=== PATIENT | female | born 1975 | race Caucasian/White ===

== ENCOUNTER → 2023-12-11 14:48 | Outpatient (REF) | payer BC, SELFPAY | LOC: WDC 14:48 | PROVIDERS: ATTENDING PHYSICIAN Emergency Medicine | DX: R92.2 Inconclusive mammogram (principal) | CPT/HCPCS: 76641 ==

== ENCOUNTER → 2024-05-16 08:55 | Outpatient (REF) | payer BC, SELFPAY | LOC: WDC 08:55 | PROVIDERS: ATTENDING PHYSICIAN Obstetrics & Gynecology Gynecology; FAMILY PHYSICIAN Emergency Medicine | DX: Z12.31 Encounter for screening mammogram for malignant neoplasm of breast (principal) | CPT/HCPCS: 77063; 77067 ==

== ENCOUNTER → 2024-12-10 09:00 | Outpatient (REF) | payer BC, SELFPAY | LOC: WDC 09:00 | PROVIDERS: ATTENDING PHYSICIAN Obstetrics & Gynecology Gynecology; FAMILY PHYSICIAN Emergency Medicine | DX: R92.2 Inconclusive mammogram (principal) | CPT/HCPCS: 76641 ==

== ENCOUNTER 2025-02-07 22:27 | Inpatient (IN) | payer BC, SELFPAY ==
[2025-02-07 14:32] VITALS: BP 118/74
--- NOTE | 2025-02-07 17:00 | ED.GENMED ---
History of Present Illness
<RL Hood - Last Filed: 02/10/25 20:31>
General
Chief Complaint: Anal/Rectal Problem
Source: patient
Exam Limitations: none
Time Seen by Provider: 02/07/25 16:27
Nursing documentation reviewed up to this point in time: agreed with
History of Present Illness
History of Present Illness:
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 She reports she has had chronic irritation to the rectal area which has
really not been diagnosed. She has been on antifungal and steroid creams however on Monday 2 days ago she has had increasing swelling and a lump just above the rectal area. She reports this has caused her increased pain she saw her family
doctor yesterday who recommended sitz bath today.
Today she reports she went to urgent care yesterday and was started on antibiotics. She took 2 Bactrim yesterday 1 dose today. Patient was seen by urgent care today and area started to drain and rupture patient was sent to the ER for evaluation.
Review of Systems
<RL Hood - Last Filed: 02/10/25 20:31>
Review of Systems
Allergies reviewed?: Yes
All Other Systems: ROS reviewed and negative except as documented in HPI and ROS
Constitutional: Reports chills
EENT: Reports no symptoms
Respiratory: Reports no symptoms
Cardiac: Reports no symptoms
ABD/GI: Reports other (lump above rectum + pain now draining ); Denies abdominal pain, nausea, vomiting or diarrhea
: Reports no symptoms
Musculoskeletal: Reports no symptoms
Skin: Reports no symptoms
Psychiatric: Reports no symptoms
Phy Exam
<RL Hood - Last Filed: 02/10/25 20:31>
General Physical Exam
General Presentation: no apparent distress
General age: appears stated age
General Skin: warm and dry
General Habitus: normal
General Mental: alert
General Hydration: appears well hydrated
Gastrointestinal Exam
Gastrointestinal Exam: soft and other (+ open actively draining (purulent ) abscess 12 o clock rectum + tender )
Neurological Exam
Neurological Exam: alert
Musculoskeletal Exam
Musculoskeletal Exam: full ROM
Skin Exam
Skin Exam: normal color and warm/dry
Psychiatric Exam
Psychiatric Exam: normal mood/affect
Course
<RL Hood - Last Filed: 02/10/25 20:31>
Orders/Labs/Results
Orders:
Orders
02/07/25 17:05
IV Insert/Care/Rem.- Treatment PRN
0.9% Sodium Chloride 1000 ml [Nss] 1,000 ml IV BOLUS
Ketorolac [Toradol] 15 mg IV NOW STA
02/07/25 17:07
CT Abd/Pel (IV only)-[facility] only Urgent
Comment:
Reason For Exam: irma -rectal abscess
Test Result ONCE
02/07/25 17:08
Complete Blood Count/With Diff Urgent
Comprehensive Metabolic Panel Urgent
HCG, Serum Qualitative Screen Urgent
02/07/25 17:15
Wound Culture [Wound/Abscess/Other Culture] Urgent
LUCINA Source: Abscess
Specimen Description:
Date Specimen was Collected: 02/07/25
Time Specimen was Collected: 17:14
Comment: irma rectal
02/07/25 21:42
Piperacillin/Tazo 3.375 Gram [Zosyn] 3.375 gram in 50 ml IV NOW
02/07/25 22:12
Admit/Transfer Patient As Directed
Co-Sign Provider:
Level of Care: Inpatient admission
Assign to:: Medical/Surgical
Physician / Group: Ghanshyam
Diagnosis: Rectal Abscess
Reason for Hospitalization: IV abx
Expected length of stay greater than two midnights?: Yes
ELOS- Estimated Length of Stay in days: 3
I certify the patient meets the requirements for IP care: Yes
02/07/25 22:13
PRN Pain Medication Management As Directed
May give lesser potent ordered pain med per pt: Yes
preference::
Protocol:: Medication orders for pain may be administered in a
manner that supports deferring to patient preference
when the pt is:
- Requesting an ordered lesser potent pain medication.
Least to most potent pain medications are defined
as: acetaminophen < NSAID < tramadol < opioids
(morphine, oxycodone, hydromorphone).
- Requesting a lesser dose of the same medication IF
ORDERED.
- Requesting a less intrusive route of administration
if both routes are prescribed by the provider (PO <
IV).
02/07/25 22:14
Code Status As Directed
Resuscitation Status: Full Code
02/08/25 00:22
Acetaminophen [Tylenol] 650 mg PO Q6HPRN PRN
HYDROmorphone [Dilaudid] 0.25 mg IV Q3HPRN PRN
Ketorolac [Toradol] 15 mg IV Q8HPRN PRN
Ondansetron Injectable [Zofran] 4 mg IV Q6HPRN PRN
02/08/25 00:22
SURGICAL CONSULT Routine
Consulting Provider: Bharath Puckett
Was physician already notified: Yes
Activity As Directed
Activity Level: Out of Bed-Early Mobility
With Assistance
Vital Signs As Directed
Frequency: Per unit guidelines
DX Deep Vein Thrombosis Video Routine
02/08/25 04:00
Piperacillin/Tazo 3.375 Gram [Zosyn] 3.375 gram in 50 ml IV Q6H
02/08/25 Breakfast
NPO
Allow oral meds: Yes
Allow clear liquids: 4hrs prior to procedure
Comment: may have unrestricted clear liquid up to 4 hrs prior to scheduled procedure
02/08/25 07:13
Complete Blood Count/No Diff IN AM
Comprehensive Metabolic Panel IN AM
02/08/25 08:00
Buspirone [Buspar] 5 mg PO TID
Hydroxychloroquine [Plaquenil] 200 mg PO DAILY
02/08/25 18:00
Enoxaparin Sodium [Lovenox] 40 mg SC QPM
02/08/25 22:00
Trazodone [Desyrel] 50 mg PO HS
Abnormal Lab Results
02/07/25
17:08
WBC 14.7 H 10^3/uL
(4.8-10.8)
RBC 3.54 L 10^6/uL
(4.20-5.40)
Hgb 11.0 L g/dL
(12.0-16.0)
Hct 32.2 L %
(37.0-47.0)
MCH 31.1 H pg
(27.0-31.0)
Absolute Neuts (auto) 11.5 H 10^3/uL
(1.4-6.5)
Absolute Monos (auto) 1.0 H 10^3/uL
(0.1-0.6)
Neutrophils % 78.7 H %
(42.2-75.2)
Lymphocytes % 13.1 L %
(20.5-51.1)
Chloride 108 H mmol/L
(98-107)
AST 178 H U/L
(14-36)
ALT 291 H U/L
(0-35)
Alkaline Phosphatase 240 H U/L
(38-126)
02/07/25 17:08
02/07/25 17:08
Vital Signs
Initial and Last Documented VS:
Initial Vital Signs
Temp Pulse Resp BP Pulse Ox
98.5 F 78 18 118/74 98
02/07/25 14:32 02/07/25 14:32 02/07/25 14:32 02/07/25 14:32 02/07/25 14:32
Last Documented Vital Signs
Temp Pulse Resp BP Pulse Ox
98.2 F 71 16 101/59 96
02/08/25 15:09 02/08/25 15:09 02/08/25 15:09 02/08/25 15:09 02/08/25 15:09
<Nay Shelby NP - Last Filed: 02/09/25 19:38>
Orders/Labs/Results
Orders:
Orders
02/07/25 17:05
IV Insert/Care/Rem.- Treatment PRN
0.9% Sodium Chloride 1000 ml [Nss] 1,000 ml IV BOLUS
Ketorolac [Toradol] 15 mg IV NOW STA
02/07/25 17:07
CT Abd/Pel (IV only)-[facility] only Urgent
Comment:
Reason For Exam: irma -rectal abscess
Test Result ONCE
02/07/25 17:08
Complete Blood Count/With Diff Urgent
Comprehensive Metabolic Panel Urgent
HCG, Serum Qualitative Screen Urgent
02/07/25 17:15
Wound Culture [Wound/Abscess/Other Culture] Urgent
LUCINA Source: Abscess
Specimen Description:
Date Specimen was Collected: 02/07/25
Time Specimen was Collected: 17:14
Comment: irma rectal
02/07/25 21:42
Piperacillin/Tazo 3.375 Gram [Zosyn] 3.375 gram in 50 ml IV NOW
02/07/25 22:12
Admit/Transfer Patient As Directed
Co-Sign Provider:
Level of Care: Inpatient admission
Assign to:: Medical/Surgical
Physician / Group: Ghanshyam
Diagnosis: Rectal Abscess
Reason for Hospitalization: IV abx
Expected length of stay greater than two midnights?: Yes
ELOS- Estimated Length of Stay in days: 3
I certify the patient meets the requirements for IP care: Yes
02/07/25 22:13
PRN Pain Medication Management As Directed
May give lesser potent ordered pain med per pt: Yes
preference::
Protocol:: Medication orders for pain may be administered in a
manner that supports deferring to patient preference
when the pt is:
- Requesting an ordered lesser potent pain medication.
Least to most potent pain medications are defined
as: acetaminophen < NSAID < tramadol < opioids
(morphine, oxycodone, hydromorphone).
- Requesting a lesser dose of the same medication IF
ORDERED.
- Requesting a less intrusive route of administration
if both routes are prescribed by the provider (PO <
IV).
02/07/25 22:14
Code Status As Directed
Resuscitation Status: Full Code
02/08/25 00:22
Acetaminophen [Tylenol] 650 mg PO Q6HPRN PRN
HYDROmorphone [Dilaudid] 0.25 mg IV Q3HPRN PRN
Ketorolac [Toradol] 15 mg IV Q8HPRN PRN
Ondansetron Injectable [Zofran] 4 mg IV Q6HPRN PRN
02/08/25 00:22
SURGICAL CONSULT Routine
Consulting Provider: Bharath Puckett
Was physician already notified: Yes
Activity As Directed
Activity Level: Out of Bed-Early Mobility
With Assistance
Vital Signs As Directed
Frequency: Per unit guidelines
DX Deep Vein Thrombosis Video Routine
02/08/25 04:00
Piperacillin/Tazo 3.375 Gram [Zosyn] 3.375 gram in 50 ml IV Q6H
02/08/25 Breakfast
NPO
Allow oral meds: Yes
Allow clear liquids: 4hrs prior to procedure
Comment: may have unrestricted clear liquid up to 4 hrs prior to scheduled procedure
02/08/25 07:13
Complete Blood Count/No Diff IN AM
Comprehensive Metabolic Panel IN AM
02/08/25 08:00
Buspirone [Buspar] 5 mg PO TID
Hydroxychloroquine [Plaquenil] 200 mg PO DAILY
02/08/25 18:00
Enoxaparin Sodium [Lovenox] 40 mg SC QPM
02/08/25 22:00
Trazodone [Desyrel] 50 mg PO HS
Abnormal Lab Results
02/07/25
17:08
WBC 14.7 H 10^3/uL
(4.8-10.8)
RBC 3.54 L 10^6/uL
(4.20-5.40)
Hgb 11.0 L g/dL
(12.0-16.0)
Hct 32.2 L %
(37.0-47.0)
MCH 31.1 H pg
(27.0-31.0)
Absolute Neuts (auto) 11.5 H 10^3/uL
(1.4-6.5)
Absolute Monos (auto) 1.0 H 10^3/uL
(0.1-0.6)
Neutrophils % 78.7 H %
(42.2-75.2)
Lymphocytes % 13.1 L %
(20.5-51.1)
Chloride 108 H mmol/L
(98-107)
AST 178 H U/L
(14-36)
ALT 291 H U/L
(0-35)
Alkaline Phosphatase 240 H U/L
(38-126)
02/07/25 17:08
02/07/25 17:08
Vital Signs
Initial and Last Documented VS:
Initial Vital Signs
Temp Pulse Resp BP Pulse Ox
98.5 F 78 18 118/74 98
02/07/25 14:32 02/07/25 14:32 02/07/25 14:32 02/07/25 14:32 02/07/25 14:32
Last Documented Vital Signs
Temp Pulse Resp BP Pulse Ox
98.2 F 71 16 101/59 96
02/08/25 15:09 02/08/25 15:09 02/08/25 15:09 02/08/25 15:09 02/08/25 15:09
<RL Hood - Last Filed: 02/10/25 20:31>
MDM/Problems Addressed
Differential Diagnosis Includes:
not limited to : irma -rectal abscess
MDM/Problems Addressed:
As documented patient with abscess approximate 12:00 of the rectum that is now draining. She does have a history of undifferentiated connective tissue disorder and is on Plaquenil. She denies any chills white count minimally elevated at 14,000 she
is on Bactrim and has had 3 doses. Culture sent CAT scan ordered. In addition patient was noted to have elevated LFTs. She has no complaints abdominal pain and is unaware that her LFTs were elevated in the past.
1829: CAT scan pending at this time care of patient transferred to Trung Shelby NP colorectal surgery made aware..
<RL Hood - Last Filed: 02/10/25 20:31>
*Radiology
Radiology exam reviewed: radiology read reviewed
*Pulse Oximetry
Patient hypoxic: no
<Nay Shelby NP - Last Filed: 02/09/25 19:38>
*Critical Care Note
Total Time (30-74mins, 75-104mins- exclusive of procedures): Not Applicable
<Nay Shelby NP - Last Filed: 02/09/25 19:38>
Update Note
Update Note:
CT result reviewed. Dr. Mcdaniel notified of findings. Patient will be admitted to hospitalists service. NPO after MN, for surgery tomorrow. Discussed CT results and plan with patient and spouse, questions answered, they are agreeable to plan.
ED Attending Note
<RL Hood - Last Filed: 02/10/25 20:31>
-
Portions of this chart may have been created with voice recognition software.� Occasional wrong word or��sound alike� substitutions may have occurred due to the inherent limitations of voice recognition software.
Discharge Plan
Departure
Patient Disposition: Admit
Date of Disposition: 02/07/25
Time of Disposition: 21:44
Presentation/result/management discussed w/ accepting MD/DO: Hospitalist
Patient with high blood pressure during this ER visit?: No
Condition: Fair
Covid-19: Not Applicable
Discharge Problem:
Abscess of anal or rectal region
Interventions
Interventions:
*Risk Screen - Suicide Last Done: 02/07/25 14:32
*General Assessment Last Done: 02/07/25 14:32
*Neglect/Abuse Screening Last Done: 02/07/25 23:00
*ED- Fall Risk Assessment Last Done: 02/07/25 22:01
*ED COVID-19 Vaccine History Last Done: 02/07/25 22:01
*Nursing Disposition Last Done: 02/08/25 00:15
ED-Skin Assessment Last Done: 02/07/25 20:44
Discharge Date and Time
Discharge Date/Time: 02/08/25 00:15
[2025-02-07] MEDS: TORADOL 15 MG IV (17:10)
[2025-02-07] MEDS: NSS 1000 IV (17:11)
[2025-02-07 17:29] LABS: % Basophils 0.5 % (0-2); % Eosinophils 0.5 % (0-6); % Immature Granulocytes 0.3 % (0-0.5); % Lymphocytes 13.1 % (20.5-51.1); % Monocytes 6.9 % (1.7-9.3); % Neutrophils 78.7 % (42.2-75.2); Absolute Basophils 0.1 10^3/uL (0-0.2); Absolute Eosinophils 0.1 10^3/uL (0-0.7); Absolute Lymphocytes 1.9 10^3/uL (1.2-3.4); Absolute Neutrophils 11.5 10^3/uL (1.4-6.5); Hematocrit 32.2 % (37.0-47.0); Mean Corp Hgb Conc. 34.2 g/dL (33.0-37.0); Mean Corpuscular Hgb 31.1 pg (27.0-31.0); Mean Platelet Volume 10.1 fL (7.4-10.4); Nucleated Red Blood Cells % 0 %; Platelet Count 328 10^3/uL (130-400); Red Blood Cell Count 3.54 10^6/uL (4.20-5.40); White Blood Cell Count 14.7 10^3/uL (4.8-10.8)
[2025-02-07 17:35] LABS: HCG, Serum Qualitative Screen Negative
[2025-02-07 17:39] LABS: ALT (SGPT) 291 U/L (0-35); AST (SGOT) 178 U/L (14-36); Albumin 3.9 g/dl (3.5-5.0); Alkaline Phosphatase 240 U/L (38-126); Blood Urea Nitrogen 11 mg/dl (7-17); Carbon Dioxide 24 mmol/L (22-30); Chloride 108 mmol/L (98-107); Glucose 97 mg/dl (70-99); Potassium 4.2 mmol/L (3.5-5.1); Sodium 139 mmol/L (135-145); Total Bilirubin 0.6 mg/dl (0.2-1.3); Total Protein 6.8 g/dl (6.3-8.2); eGFR > 60.00
[2025-02-07 20:57] VITALS: BP 114/66
[2025-02-07] MEDS: ZOSYN 50 IV (21:52)
--- NOTE | 2025-02-07 22:18 | HPS.HSE ---
Addendum entered and electronically signed by Misha Morrissey DO 02/07/25 23:22:
Patient seen and examined independently. Agree with findings and plan as set forth by Nicky Moody PA-C.
Patient is a 49y F with PMH significant for unspecified connective tissue disorder who presents to ED complaining of rectal itching and pain. Patient reports itching x several weeks. Symptoms gradually progressed to include pain in the rectal
area - worse with sitting / squatting. Patient herself appreciated a lump in the rectal area. Yesterday she was seen by her PCP, started on Bactrim and recommended soaks. Patient presented to the ED today with worsening discomfort.
CT done in the ED shows inflammation in the distal rectum with small abscess / collection.
Ass:
Perirectal Abscess
Unspecified Connective Tissue Disease
Anxiety / Insomnia
Plan:
Admit for further evaluation and treatment.
IV Zosyn for now.
Supportive care / pain control.
Colorectal Surgery evaluation - ? I&D of area.
Follow for clinical improvement.
Continue usual home medications.
Original Note:
Family Physician
-
Family Physician: Leonela Nam MD
Chief Complaint
-
Rectal Pain/Itching
History of Present Illness
Patient is a 49 y/o female past medical history of anxiety/insomnia and unspecified connective tissue disorder who presents with rectal pain/itching. Patient notes anal itching for several weeks. She developed an increased swelling with a palpable
lump just above the rectal area. Yesterday she started on Bactrim by her primary care provider who also recommended sitz baths. She was seen at urgent care today due persistent symptoms who sent her to the emergency department for evaluation for a
draining perirectal abscess. Patient reports temperature ~99F but no sweats or chills.
Medical History
Past Medical History
Past Medical History: Reports Other
Additional Past Medical History:
Anxiety / Insomnia
Unspecified Connective Tissue Disorder
Past Surgical History: Reports Other
Additional Past Surgical History:
Colon polypectomy
Cervical polypectomy
Social History
Tobacco: Non-smoker
Alcohol: Other (One beer nightly)
Family History
Family History: Not pertinent
Allergies / Home Medications
Allergies reflects when Allergies were last updated in [facility].
Home Medications with original date entered in [facility]
Allergy/Medication List:
Allergies
Allergy/AdvReac Type Severity Reaction Status Date / Time
No Known Allergies Allergy Unverified 02/07/25 14:38
Home Medications
acetaminophen 325 mg tablet (Tylenol) 650 mg PO Q6HPRN PRN mild pain 02/07/25
buspirone 5 mg tablet 5 mg PO TID 02/07/25
estradiol-norethindrone acet 1 mg-0.5 mg tablet (Mimvey) 1 tab PO DAILY 02/07/25
hydroxychloroquine 200 mg tablet (Plaquenil) 200 mg PO DAILY 02/07/25
sulfamethoxazole 800 mg-trimethoprim 160 mg tablet (Bactrim DS) 1 tab PO BID 02/07/25
therapeutic multivitamin 1 tab PO DAILY 02/07/25
trazodone 50 mg tablet 50 mg PO HS 02/07/25
Review of Systems
-
A 12 point ROS was completed and negative except as noted: Yes
Constitutional: Denies Fever
Respiratory: Denies Cough or Trouble Breathing
Cardiac: Denies Chest Pain or Palpitations
Abdomen/GI: Denies Abdominal Pain, Nausea, Vomiting, Diarrhea or Constipated
Physical Exam
Vital Signs
Vital Signs
Temp Pulse Resp BP Pulse Ox
98.5 F 82 18 114/66 96
02/07/25 14:32 02/07/25 20:57 02/07/25 20:57 02/07/25 20:57 02/07/25 20:57
Physical Exam
General: Comfortable and Conversant
HEENT: Anicteric and Moist mucous membranes
Respiratory: Clear and Non Labored Respirations
Cardiac: S1/S2 and Regular Rhythm
GI: Soft, Non Tender and Other
Rectal: Other (Draining abscess noted by ED provider)
Musculoskeletal: No Clubbing, No Cyanosis and No Edema
Skin: Warm and Dry
Neuro: Awake, Alert, Oriented and Nonfocal/grossly intact
Psych: Calm
Laboratory Results
-
02/07/25 17:08
02/07/25 17:08
Laboratory Results
Total Bilirubin 0.6 mg/dl (0.2-1.3) 02/07/25 17:08
AST 178 U/L (14-36) H 02/07/25 17:08
ALT 291 U/L (0-35) H 02/07/25 17:08
Alkaline Phosphatase 240 U/L (38-126) H 02/07/25 17:08
Data Reviewed
-
CT Scan: Report Reviewed by me
Lab Data: Labs Reviewed by me
Impression/Plan
-
Liseth-Rectal Abscess
-Consult Surgery
-Plan for I&D in OR tomorrow
-Continue Zosyn
-Await culture result
Anxiety / Insomnia
-Continue buspirone and trazodone
Unspecified Connective Tissue Disorder
-Continue hydroxychloroquine
DVT proph: Lovenox
Code Status: Full Code
[2025-02-07 23:46] VITALS: BP 110/62
[2025-02-08] VITALS (12 sets, daily range): BP systolic 91–119; BP diastolic 46–71; BMI 21.3
[2025-02-08] MEDS: TORADOL 15 MG IV (01:17)
--- NOTE | 2025-02-08 02:02 | PTCARENOTE ---
Receive pt from ER. Pt alert oriented X3 calm and pleasant, in no distress. Pt reports pain in the perirectal area of 5/10. The pain has a burning sensation. Pt oriented to the room, call blank within reach. VSS (T=98.3, HR=69, RR=18, SV=667/71,
SpO2=97% on RA). Perirectal area cleaned with saline and a dry gauze 4x4. Toradol 15mg given for pain. Will continue to monitor the pt.
[2025-02-08] MEDS: ZOSYN 50 IV ×2 (04:05→11:33)
[2025-02-08 08:20] LABS: Mean Corp Hgb Conc. 33.3 g/dL (33.0-37.0); Mean Corpuscular Hgb 30.3 pg (27.0-31.0); Mean Corpuscular Volume 90.9 fL (81.0-99.0); Mean Platelet Volume 10.3 fL (7.4-10.4); Platelet Count 306 10^3/uL (130-400); Red Cell Dist. Width 13.8 % (11.5-14.5); White Blood Cell Count 11.6 10^3/uL (4.8-10.8)
[2025-02-08] MEDS: BUSPAR 5 MG PO (08:25)
[2025-02-08 08:57] LABS: ALT (SGPT) 206 U/L (0-35); AST (SGOT) 82 U/L (14-36); Albumin 3.4 g/dl (3.5-5.0); Alkaline Phosphatase 223 U/L (38-126); Blood Urea Nitrogen 16 mg/dl (7-17); Calcium 8.9 mg/dl (8.4-10.2); Carbon Dioxide 23 mmol/L (22-30); Chloride 109 mmol/L (98-107); Estimated Creatinine Clearance 78 ml/min; Glucose 62 mg/dl (70-99); Potassium 4.1 mmol/L (3.5-5.1); Sodium 139 mmol/L (135-145); Total Bilirubin 0.7 mg/dl (0.2-1.3); Total Protein 6.2 g/dl (6.3-8.2); eGFR > 60.00
--- NOTE | 2025-02-08 09:42 | CON.GS ---
Medical History
-
Chief Complaint: Liseth-anal pain
History of Present Illness:
Patient is a 49 yo F with a PMH of depression/anxiety and unknown collagen vascular disorder (on Hydroxychloroquine) who presents with acute on chronic perianal pain and drainage. Ms. Reis states that over the past several months she has had issues
with perianal discomfort and itching. She denies any significant pain or clear drainage. She has had outpatient workup and management by her PCP with largely topical therapies including steroids. She states that on Monday she developed
worsening pain prompting repeat evaluation at her PCPs office who referred her to an urgent care. At the urgent care she was found to have drainage and concern for an abscess prompting referral to the ED. No fevers or chills. No weight loss or
night sweats. No significant chronic GI issues including constipation, diarrhea, or bloody bowel movements. No issues with incontinence. Last colonoscopy was in 2022 and notable for a 3 mm polyp in the rectum; biopsy fragment of colonic mucosa
with focal adenomatous changes. Since spontaneous drainage she states that her symptoms (largely pain) have improved.
Of note, she has an upcoming appointment with colorectal surgery on 02/12/2025. She has not previously seen a colorectal surgeon for these issues.
Past Medical History
Past Medical History: Psychiatric (Depression/anxiety) and Other (Unknown collagen vascular disorder)
Past Surgical History: None
Social History
Tobacco: Non-Smoker
Alcohol: Occasional
Drug: None
Personal:
Living: With Family
Family History
Family History: Reviewed & Noncontributory
Allergies / Home Medications
Allergy/AdvReac Type Severity Reaction Status Date / Time
No Known Allergies Allergy Unverified 02/07/25 14:38
�Medication �Instructions �Recorded �Confirmed �Type
acetaminophen 325 mg tablet 650 mg PO Q6HPRN PRN mild pain 02/07/25 02/07/25 History
(Tylenol)
buspirone 5 mg tablet 5 mg PO TID Mental Health/Anxiety 02/07/25 02/07/25 History
estradiol-norethindrone acet 1 1 tab PO DAILY Hormonal Agent 02/07/25 02/07/25 History
mg-0.5 mg tablet (Mimvey)
hydroxychloroquine 200 mg tablet 200 mg PO DAILY Autoimmune Disorder 02/07/25 02/07/25 History
(Plaquenil)
sulfamethoxazole 800 1 tab PO BID Infection 02/07/25 02/07/25 History
mg-trimethoprim 160 mg tablet
(Bactrim DS)
therapeutic multivitamin 1 tab PO DAILY Supplement 02/07/25 02/07/25 History
trazodone 50 mg tablet 50 mg PO HS Sleep 02/07/25 02/07/25 History
Review of Systems
-
A 10 point review of systems was completed, and was negative except as per HPI.
Physical Exam
Vital Signs
Temp Pulse Resp BP Pulse Ox
98.1 F 71 16 119/63 98
02/08/25 07:22 02/08/25 07:22 02/08/25 07:22 02/08/25 07:22 02/08/25 07:22
02/07/25 02/08/25 02/09/25
06:59 06:59 06:59
Actual Weight 59.903 kg
Body Mass Index (BMI) 21.3
Lab Results
02/08/25 07:13
02/08/25 07:13
WBC 11.6 10^3/uL (4.8-10.8) H 02/08/25 07:13
Hgb 10.0 g/dL (12.0-16.0) L 02/08/25 07:13
Hct 30.0 % (37.0-47.0) L 02/08/25 07:13
Plt Count 306 10^3/uL (130-400) 02/08/25 07:13
Abs Immat Gran (auto) 0.0 10^3/uL (0-0.05) 05/16/25 17:08
Neutrophils % 78.7 % (42.2-75.2) H 02/07/25 17:08
Physical Exam
General: Well Developed, Well Nourished and No Apparent Distress
Respiratory: Non Labored Respirations
Cardiac: Regular Rhythm
GI: Soft, Non Tender and Non Distended
Rectal: Other (Posterior midline with 0.5 cm opening, mild drainage of serous fluid, no significant surrounding erythema or induration, no palpable fluid collection, mild/moderate discomfort with exam)
Musculoskeletal: No Edema
Skin: Warm and Dry
Neuro: Nonfocal/Grossly Intact
Data Reviewed
-
CT Scan: Image Personally Visualized and interpreted and Report Reviewed by me
Labs: Labs Reviewed by me
Assessment / Plan
-
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
Time course and prodromal symptoms are somewhat unusual extending longer than what would typically be expected for an acute issue such as a perirectal abscess. The natural history and pathophysiology of perirectal abscesses was discussed. Options
for management at this time were reviewed. Given her persistent issues and concern for possible fistulous connection, recommend exam under anesthesia, drainage of a perirectal abscess, and possible seton placement. The procedure itself, as well as
the risks, benefits, and alternatives was discussed. Specifically, we discussed the risks of bleeding, infection, injury to surrounding structures, incontinence issues, and need for further procedures. Typical postprocedural recovery was
discussed. Expect that she will continue with follow-up with the Colorectal surgeons this coming week regardless of findings and procedural intervention performed. Ms. Reis agrees to proceed. All questions answered. Consent signed.
-- EUA, drainage of perirectal abscess, possible seton placement
-- NPO, IVF
-- Abx: Zosyn
--- NOTE | 2025-02-08 09:55 | W.SUR.PREOP ---
Pre-Operative Surgical Note
-
I have examined this patient prior to the performance of the scheduled procedure.
The patient's condition is unchanged from the time of the current History and
Physical and the patient is able to undergo the scheduled procedure.
[2025-02-08 10:26] LABS: Iron 46 ug/dl (37-170)
[2025-02-08 10:34] LABS: Reticulocyte Count 1.2 % (0.4-2.8)
[2025-02-08 10:36] LABS: Percent Saturation 20 % (20-50); Total Iron Binding Capacity 222 ug/dl (265-497)
--- NOTE | 2025-02-08 10:56 | W.IMMPOSTOP ---
Surgical Immed Post Op Note
-
Primary Surgeon: Italo
Assisting Surgeon: None
Pre-op Diagnosis: Irma-rectal fistula
Post-op Diagnosis: Irma-rectal fistula
Procedure Performed: Exam under anesthesia (EUA), drainage of irma-rectal abscess, placement of seton
Anesthesia Type: MAC/local
Specimen / Cultures: None
Estimated Blood Loss: 3 cc
Complications: None
Operative Findings:
1. Posterior midline abscess with well formed sinus and fistulous connection to the distal rectum, no masses or significant proctitis appreciated, minimal drainage of seropurulent fluid, no un-drained collections
2. Non-cutting seton (vessel loop) placed
--- NOTE | 2025-02-08 11:23 | W.PN.HOSP.TC ---
Today's Communication/Plan
-
Augmentin at discharge
Follow-up with surgery
Sitz baths
Avoid constipation
Assessment / Plan
Assessment / Plan
Impression
49-year-old female with past medical history of mixed connective tissue disorder and anxiety admitted for perirectal abscess drainage.
Plan
#Perirectal abscess
History of chronic perianal pain and drainage
Patient was started on Zosyn in the ER
Elevated white count, afebrile but the patient was not septic at presentation
CT with evidence of midline ano rectal abscess
Surgery on board
Patient underwent exploration under anesthesia, seton placement drainage of the perirectal abscess and seton placement
Adequate pain control
Patient is hemodynamically stable, okay to be discharged from surgery standpoint
Antibiotics transitioned to Augmentin 875/125 twice daily for 4 more days
Sitz baths
Avoid constipation
Follow-up with surgery outpatient
#Anxiety/insomnia
Continue buspirone, trazodone
#Mixed connective tissue disorder
Continue hydroxychloroquine
DVT prophylaxis�Lovenox
Full code
Anticipated Discharge: Today
Subjective/Interval History
-
Date of Service: February 08, 2025
Evaluated the patient after she is back from the procedure�perirectal abscess drainage/seton placement
Mild discomfort in the operated area, but she is able to ambulate, use the restroom.
Objective Data
-
Labs:
Laboratory Results
02/08/25
07:13
WBC 11.6 H
Hgb 10.0 L
Hct 30.0 L
Plt Count 306
Sodium 139
Potassium 4.1
Chloride 109 H
Carbon Dioxide 23
BUN 16
Creatinine 0.8
Glucose 62 L
Calcium 8.9
Total Bilirubin 0.7
AST 82 H
ALT 206 H
Alkaline Phosphatase 223 H
Vital Signs:
Vital Signs
Temp Pulse Resp BP Pulse Ox
97.8 F 75 18 92/52 97
02/08/25 11:17 02/08/25 11:17 02/08/25 11:17 02/08/25 11:17 02/08/25 11:17
I&O
02/07/25 02/08/25 02/09/25
06:59 06:59 06:59
Intake Total 50 / 50 75 / 75
Balance 50 / 50 75 / 75
Review of Systems
-
All other systems: Reviewed and negative (Except as mentioned above)
Physical Exam
-
General: Well Developed, Well Nourished and No Apparent Distress
HEENT: Normocephalic and Atraumatic
Respiratory: Clear to Auscultation
Cardiac: Regular Rhythm and S1/S2
GI: Soft, Nontender, Nondistended and Normal Bowel Sounds
Skin: Warm and Dry
Neuro: Awake, Alert, Oriented and AO x 3
Psych: Calm
[2025-02-08] MEDS: FLUSH (NSS) 2 FLUSH IV (11:34)
--- NOTE | 2025-02-08 11:41 | PTCARENOTE ---
received from PACU in bed. patient awake but feels sleepy- denies pain. vitals noted. small rectal drain present, ABD pad in perirectal area- no drainage noted. no needs at this time. call blank in reach. plan of care on going.
--- NOTE | 2025-02-09 06:11 | W.DCSUMMARY ---
Documented by User: Noemy Dunn MD, Resident 02/09/25 06:23
Discharge Summary
Discharge Data
Date of Admission: 02/07/25
Date of Discharge: 02/08/25
-
Pending Results: Yes
Additional Pending Results:
Abscess culture
Hospital Course
Discharging Physician : Dr. Spangler, Dr. Salguero
Disposition : Home
Principal Discharge diagnosis : Perirectal abscess
Chronic Discharge diagnosis : Mixed connective tissue disorder, anxiety/depression
Hospital Course : 49y F with past medical history significant for mixed connective tissue disorder presents to ED complaining of rectal itching and pain. Symptoms worsened over the past several weeks, was seen seen by her PCP a day ago, started
on Bactrim (took 2 doses) and recommended soaks, without much relief.
ER workup�elevated white count at 14.7, afebrile, hemoglobin�11.0, AST�178, ALT�291, ALP�240. CT done in the ED shows inflammation in the distal rectum with small abscess / collection. Patient was started on IV Zosyn.
Surgery was consulted�patient underwent exploration of the perirectal abscess under anesthesia, seton placement. Pain adequately controlled. Patient is hemodynamically stable and okay to be discharged home with a course of Augmentin 875/125 for 4
more days. Advised sitz baths and to avoid constipation. Follow-up with primary care and surgery.
Important imaging findings :
CT abdomen/pelvis� 1.9 x 1.0 x 1.4 cm rim-enhancing abscess posterior to the anorectal junction at midline. Inflammatory fat stranding about the lower rectum and anus.
Discharge Plan
-
Patient Disposition: Home (Routine Discharge)
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
Condition: Good
Diet: As tolerated
Activity: As tolerated
Driving Restrictions: No driving for 24 hours
Bathing Restrictions: OK to Shower
Wound Care: Sitz baths 2-3 x a day. Keep gauze bad near site to absorb drainage and change twice a day and as needed.
Keep the area clean and as dry as you are able.
Instructions: How to take a sitz bath
Referrals:
Leonela Nam MD [Family Provider] - in less than 1 week
Rasheed Lozoya MD [Active] - (Keep your scheduled appointment with [facility])
Additional Discharge Medication Instructions: Avoid constipation as able, we recommend taking over the counter Miralax or a fiber supplement as needed to keep stools soft
Prescriptions:
New
amoxicillin-pot clavulanate 875-125 mg tablet
1 tab PO Q12 Qty: 8 0RF
acetaminophen 325 mg tablet
650 mg PO Q4HPRN PRN (Reason: mild pain) Qty: 1 0RF
ibuprofen 200 mg tablet
400 - 600 mg PO Q6HPRN PRN (Reason: moderate pain) Qty: 1 0RF
Continued
buspirone 5 mg Tablet
5 mg PO TID
acetaminophen [Tylenol] 325 mg Tablet
650 mg PO Q6HPRN PRN (Reason: mild pain)
trazodone 50 mg Tablet
50 mg PO HS
therapeutic multivitamin Tablet
1 tab PO DAILY
estradiol-norethindrone acet [Mimvey] 1-0.5 mg Tablet
1 tab PO DAILY
hydroxychloroquine [Plaquenil] 200 mg Tablet
200 mg PO DAILY
Discontinued
sulfamethoxazole-trimethoprim [Bactrim DS] 800-160 mg Tablet
1 tab PO BID
Rx Instructions:
for 7 days starting 02/06/25
Discharge Orders:
Discharge Patient (As Directed); Ordered 02/08/25
Ordered By: Noemy Dunn
Discharge Date and Time
Discharge Date/Time: 02/08/25 16:30
Print Language: GERMAN

Documented by User: Kevon Spangler DO 02/09/25 08:06
Discharge Summary
Discharge Data
Date of Admission: 02/07/25
Date of Discharge: 02/09/25
Total time spent discharging patient (in min): 35
Discharge Plan
-
Patient Disposition: Home (Routine Discharge)
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
Condition: Good
Diet: As tolerated
Activity: As tolerated
Driving Restrictions: No driving for 24 hours
Bathing Restrictions: OK to Shower
Wound Care: Sitz baths 2-3 x a day. Keep gauze bad near site to absorb drainage and change twice a day and as needed.
Keep the area clean and as dry as you are able.
Instructions: How to take a sitz bath
Referrals:
Leonela Nam MD [Family Provider] - in less than 1 week
Rasheed Lozoya MD [Active] - (Keep your scheduled appointment with [facility])
Additional Discharge Medication Instructions: Avoid constipation as able, we recommend taking over the counter Miralax or a fiber supplement as needed to keep stools soft
Prescriptions:
New
amoxicillin-pot clavulanate 875-125 mg tablet
1 tab PO Q12 Qty: 8 0RF
acetaminophen 325 mg tablet
650 mg PO Q4HPRN PRN (Reason: mild pain) Qty: 1 0RF
ibuprofen 200 mg tablet
400 - 600 mg PO Q6HPRN PRN (Reason: moderate pain) Qty: 1 0RF
Continued
buspirone 5 mg Tablet
5 mg PO TID
acetaminophen [Tylenol] 325 mg Tablet
650 mg PO Q6HPRN PRN (Reason: mild pain)
trazodone 50 mg Tablet
50 mg PO HS
therapeutic multivitamin Tablet
1 tab PO DAILY
estradiol-norethindrone acet [Mimvey] 1-0.5 mg Tablet
1 tab PO DAILY
hydroxychloroquine [Plaquenil] 200 mg Tablet
200 mg PO DAILY
Discontinued
sulfamethoxazole-trimethoprim [Bactrim DS] 800-160 mg Tablet
1 tab PO BID
Rx Instructions:
for 7 days starting 02/06/25
Discharge Orders:
Discharge Patient (As Directed); Ordered 02/08/25
Ordered By: Noemy Dunn
Discharge Date and Time
Discharge Date/Time: 02/08/25 16:30
Print Language: GERMAN
== END 2025-02-08 16:30 | disposition home or self-care (01) | DRG 349 ==
LOC: 4 EAST ACU 22:27
PROVIDERS: Nurse Practitioner; Physician Assistant Medical; Student in an Organized Health Care Education/Training Program; ADMITTING PHYSICIAN Hospitalist; ATTENDING PHYSICIAN Internal Medicine; CONSULT PHYSICIAN Surgery; EMERGENCY PHYSICIAN Emergency Medicine; FAMILY PHYSICIAN Emergency Medicine
PROC: 0D9Q70Z Drainage of Anus with Drainage Device, Via Natural or Artificial Opening (ICD-10-PCS; 2025-02-08)
DX: K60.40 Rectal fistula, unspecified (principal); K60.30 Anal fistula, unspecified; K62.89 Other specified diseases of anus and rectum; F41.9 Anxiety disorder, unspecified; G47.00 Insomnia, unspecified; Z79.899 Other long term (current) drug therapy
CPT/HCPCS: 74177; 80053; 82728; 83540; 83550; 84703; 85025; 85027; 85045; 87070; 87147; 87186; 87205; 96361; 96365; 96375; 99284; Q9967

== ENCOUNTER 2025-03-06 06:25 | Day surgery (SDC) | payer BC, SELFPAY ==
[2025-03-06] VITALS (7 sets, daily range): BP systolic 91–114; BP diastolic 52–66; BMI 21.5
[2025-03-06] MEDS: NORMOSOL-R/PLASMALYTE-A 1000 IV (08:55)
== END 2025-03-06 11:55 | disposition home or self-care (01) ==
LOC: SDS 06:25
PROVIDERS: ATTENDING PHYSICIAN Surgery; FAMILY PHYSICIAN Emergency Medicine
DX: K60.30 Anal fistula, unspecified (principal)
CPT/HCPCS: 46270; 46030; 93005

== ENCOUNTER → 2025-05-20 08:43 | Outpatient (REF) | payer BC, SELFPAY | LOC: WDC 08:43 | PROVIDERS: ATTENDING PHYSICIAN Obstetrics & Gynecology Gynecology; FAMILY PHYSICIAN Emergency Medicine | DX: Z12.31 Encounter for screening mammogram for malignant neoplasm of breast (principal) | CPT/HCPCS: 77063; 77067 ==